=== PATIENT | female | born 1995 | race Asian ===

== ENCOUNTER 2016-09-26 05:40 | Emergency (ER) | payer OTHER, BC ==
[~2016-09-26] VITALS: Ht 165.1 cm; Wt 60.2 kg
[2016-09-26] MEDS ORDERED: SODIUM CHLORIDE FLUSH 10ML SYR IVF ONE (06:00)
[2016-09-26] MEDS ORDERED: SODIUM CHLORIDE 0.9% 1,000ML IVBOLUS ONE (06:00)
[2016-09-26] MEDS ORDERED: ONDANSETRON 2MG/ML, 2ML IVPush ONE (06:00)
[2016-09-26 06:35] LABS: BLOOD UREA NITROGEN 13 mg/dL (7-18)
[2016-09-26] MEDS ORDERED: ONDANSETRON 2MG/ML, 2ML ONE (06:40)
[2016-09-26 06:43] VITALS: BP 108/72
== END 2016-09-26 07:48 | disposition home or self-care (01) ==
LOC: ED 07:19
DX: O99.611 Diseases of the digestive system complicating pregnancy, first trimester (principal); G40.909 Epilepsy, unspecified, not intractable, without status epilepticus; R10.32 Left lower quadrant pain; Z3A.01 Less than 8 weeks gestation of pregnancy
CPT/HCPCS: 36415; 76830; 80048; 81001; 82040; 84702; 85025; 86901; 96361; 96374; 99285; J2405; J7030

== ENCOUNTER 2016-09-28 18:57 | Emergency (ER) | payer OTHER, BC ==
[~2016-09-28] VITALS: Ht 165.1 cm; Wt 59.6 kg
[2016-09-28 18:59] VITALS: BP 119/75
[2016-09-28] MEDS ORDERED: PRENATAL VITS (19:18)
== END 2016-09-28 21:05 | disposition home or self-care (01) ==
LOC: ED 20:30
DX: O26.891 Other specified pregnancy related conditions, first trimester (principal); Z3A.14 14 weeks gestation of pregnancy; R10.32 Left lower quadrant pain
CPT/HCPCS: 36415; 76801; 84702; 99285